=== PATIENT | female | born 1960 ===

== ENCOUNTER 2018-08-02 12:53 | Inpatient (IN) ==
[2018-08-02] MEDS ORDERED: ONDANSETRON 4 MG/2 ML VIAL IV PRN (14:26)
[2018-08-02] MEDS ORDERED: ACETAMINOPHEN 325 MG TABLET PO PRN (14:26)
[2018-08-02] MEDS ORDERED: DEXTROSE 50% 25 GM/50 ML VIAL IV PRN (14:32)
[2018-08-02] MEDS ORDERED: GLUCAGON 1 MG VIAL IM PRN (14:32)
[2018-08-02] MEDS ORDERED: HYDROmorphone 2 MG/1 ML VIAL IV PRN (14:32)
[2018-08-02] MEDS ORDERED: BISACODYL 5 MG TABLET PO PRN (14:32)
[2018-08-02] MEDS ORDERED: NICOTINE 14 MG/24 HR PATCH TRANSDERM PRN (14:56)
[2018-08-02] MEDS: LACTATED RINGERS 1,000 ML IV SCH ×2 (17:48→23:19)
[2018-08-02] MEDS: PANTOPRAZOLE 40 MG TABLET PO SCH (17:48)
[2018-08-02] MEDS: INSULIN LISPRO 100 UNIT/ML SUBCUT SCH (17:49)
[2018-08-02 18:10] LABS: Calcium 9.1 MG/DL (8.5-10.1); Potassium 3.6 MMOL/L (3.5-5.1)
[2018-08-02] MEDS: VANCOMYCIN INJ 1,000 MG in SODIUM CHLORIDE 0.9% 250 ML IV SCH (21:17)
[2018-08-02] MEDS: SIMVASTATIN 20 MG TABLET PO SCH (21:27)
[2018-08-03 04:28] LABS: Basophils # 0.1 10*3/uL (0.0-0.2); Basophils % 0.5 % (0.0-0.8); Eosinophils # 0.2 10*3/uL (0.0-0.87); Eosinophils % 1.5 % (0.00-10.9); Hematocrit 37.7 VOL% (35.7-47.0); Hemoglobin 11.9 GM/DL (12.0-16.0); Immature Granulocytes % 0.7 %; Immature Granulocytes Absolute 0.09 #; Lymphocytes # 3.1 10*3/uL (1.4-4.0); Mean Corpuscular HGB Conc 31.6 GM/DL (32-36); Mean Corpuscular Hemoglobin 28 PG (27-34); Mean Corpuscular Volume 87.9 FL (87-102); Mean Platelet Volume 10.8 FL (9.6-12.0); Monocytes # 1.5 10*3/uL (0.11-0.8); Monocytes % 11.1 % (1.7-12.7); Neutrophils # 8.6 10*3/uL (1.4-7.4); Neutrophils % 63.2 % (38.7-73.9); Platelet Count 272 T/CUMM (130-400); Red Blood Count 4.29 MC/CUMM (3.8-5.5); White Blood Count 13.7 T/CUMM (4-12)
[2018-08-03 04:45] LABS: Calcium 8.7 MG/DL (8.5-10.1); Osmolality,Calculated 286.1 MOS/KG (273-304); Potassium 3.7 MMOL/L (3.5-5.1)
[2018-08-03] MEDS: LACTATED RINGERS 1,000 ML IV SCH ×3 (05:12→22:14)
[2018-08-03] MEDS ORDERED: FAMOTIDINE 20 MG TABLET PO ONE (06:00)
[2018-08-03] MEDS: VANCOMYCIN INJ 1,000 MG in SODIUM CHLORIDE 0.9% 250 ML IV SCH ×2 (08:13→21:22)
[2018-08-03] MEDS: INSULIN LISPRO 100 UNIT/ML SUBCUT SCH ×3 (08:13→17:42)
[2018-08-03] MEDS: LISINOPRIL 2.5 MG TABLET PO SCH (08:14)
[2018-08-03] MEDS ORDERED: LIDOCAINE 1%/EPI INJ 20 ML VIAL ONE (09:14)
[2018-08-03] MEDS ORDERED: PROPOFOL 200 MG/20 ML VIAL IV ONE (10:14)
[2018-08-03] MEDS ORDERED: MIDAZOLAM 2 MG/2 ML VIAL ONE (10:14)
[2018-08-03] MEDS ORDERED: fentaNYL 100 MCG/2 ML VIAL ONE (10:14)
[2018-08-03] MEDS: PANTOPRAZOLE 40 MG TABLET PO SCH (11:28)
[2018-08-03] MEDS: INSULIN GLARGINE 100 UNIT/ML SUBCUT SCH (17:42)
[2018-08-03] MEDS: SIMVASTATIN 20 MG TABLET PO SCH (21:23)
[2018-08-04 05:21] LABS: Basophils # 0.1 10*3/uL (0.0-0.2); Basophils % 0.5 % (0.0-0.8); Eosinophils # 0.2 10*3/uL (0.0-0.87); Eosinophils % 1.3 % (0.00-10.9); Hematocrit 38.2 VOL% (35.7-47.0); Immature Granulocytes % 0.7 %; Immature Granulocytes Absolute 0.08 #; Lymphocytes # 3.5 10*3/uL (1.4-4.0); Lymphocytes % 28.5 % (21.3-54.2); Mean Corpuscular HGB Conc 31.4 GM/DL (32-36); Mean Corpuscular Hemoglobin 28 PG (27-34); Mean Corpuscular Volume 88.2 FL (87-102); Mean Platelet Volume 11.1 FL (9.6-12.0); Monocytes # 1.1 10*3/uL (0.11-0.8); Neutrophils # 7.3 10*3/uL (1.4-7.4); Platelet Count 290 T/CUMM (130-400); Red Blood Count 4.33 MC/CUMM (3.8-5.5); Red Cell Distribution Width 13.7 % (9.3-17.3); White Blood Count 12.2 T/CUMM (4-12)
[2018-08-04 05:47] LABS: Calcium 8.4 MG/DL (8.5-10.1); Osmolality,Calculated 282.5 MOS/KG (273-304); Potassium 3.9 MMOL/L (3.5-5.1)
[2018-08-04] MEDS: LACTATED RINGERS 1,000 ML IV SCH ×2 (07:15→07:49)
[2018-08-04] MEDS ORDERED: MAGNESIUM SULF RIDER 2 GM in PREMIX 1 EACH IV PRN (08:43)
[2018-08-04] MEDS ORDERED: MAGNESIUM SULF RIDER 4 GM in PREMIX 1 EACH IV PRN (08:43)
[2018-08-04] MEDS: LISINOPRIL 2.5 MG TABLET PO SCH (08:54)
[2018-08-04] MEDS: VANCOMYCIN INJ 1,000 MG in SODIUM CHLORIDE 0.9% 250 ML IV SCH ×2 (08:54→20:52)
[2018-08-04] MEDS: PANTOPRAZOLE 40 MG TABLET PO SCH (08:54)
[2018-08-04] MEDS: INSULIN LISPRO 100 UNIT/ML SUBCUT SCH ×3 (08:56→16:52)
[2018-08-04] MEDS: INSULIN GLARGINE 100 UNIT/ML SUBCUT SCH (08:56)
[2018-08-04] MEDS ORDERED: INSULIN GLARGINE 100 UNIT/ML SUBCUT SCH (10:40)
[2018-08-04] MEDS: CHLORHEXIDINE 4% SOLN 118 ML BOTTLE TOP SCH (14:25)
[2018-08-04] MEDS: SODIUM HYPOCHLORITE 0.25% IRRIG 473 ML BOTTLE TOP SCH (14:25)
[2018-08-04] MEDS: SIMVASTATIN 20 MG TABLET PO SCH (20:53)
[2018-08-05] MEDS: PANTOPRAZOLE 40 MG TABLET PO SCH (09:29)
[2018-08-05] MEDS: LISINOPRIL 2.5 MG TABLET PO SCH (09:29)
[2018-08-05] MEDS: INSULIN LISPRO 100 UNIT/ML SUBCUT SCH ×3 (09:30→16:06)
[2018-08-05] MEDS: INSULIN GLARGINE 100 UNIT/ML SUBCUT SCH (09:30)
[2018-08-05] MEDS: VANCOMYCIN INJ 1,250 MG in SODIUM CHLORIDE 0.9% 250 ML IV SCH (09:32)
[2018-08-05] MEDS: SODIUM HYPOCHLORITE 0.25% IRRIG 473 ML BOTTLE TOP SCH (09:35)
[2018-08-05] MEDS: CHLORHEXIDINE 4% SOLN 118 ML BOTTLE TOP SCH (09:35)
[2018-08-06] MEDS: SIMVASTATIN 20 MG TABLET PO SCH ×2 (01:57→20:49)
[2018-08-06] MEDS: VANCOMYCIN INJ 1,250 MG in SODIUM CHLORIDE 0.9% 250 ML IV SCH ×2 (01:57→09:17)
[2018-08-06] MEDS: PANTOPRAZOLE 40 MG TABLET PO SCH (08:34)
[2018-08-06] MEDS: LISINOPRIL 2.5 MG TABLET PO SCH (08:34)
[2018-08-06] MEDS: INSULIN GLARGINE 100 UNIT/ML SUBCUT SCH (08:35)
[2018-08-06] MEDS: INSULIN LISPRO 100 UNIT/ML SUBCUT SCH ×3 (08:35→16:20)
[2018-08-06] MEDS: CHLORHEXIDINE 4% SOLN 118 ML BOTTLE TOP SCH (11:13)
[2018-08-06] MEDS: SODIUM HYPOCHLORITE 0.25% IRRIG 473 ML BOTTLE TOP SCH (11:13)
[2018-08-06] MEDS: CLINDAMYCIN 300 MG CAPSULE PO SCH ×3 (13:39→22:19)
[2018-08-07] MEDS: CLINDAMYCIN 300 MG CAPSULE PO SCH (06:17)
[2018-08-07] MEDS ORDERED: glyBURIDE/METFORMIN 5-500 MG TABLET PO SCH (09:00)
[2018-08-07] MEDS: PANTOPRAZOLE 40 MG TABLET PO SCH (09:29)
[2018-08-07] MEDS: LISINOPRIL 2.5 MG TABLET PO SCH (09:29)
[2018-08-07] MEDS: INSULIN LISPRO 100 UNIT/ML SUBCUT SCH ×2 (09:29→11:37)
[2018-08-07] MEDS: CHLORHEXIDINE 4% SOLN 118 ML BOTTLE TOP SCH (11:13)
[2018-08-07] MEDS: SODIUM HYPOCHLORITE 0.25% IRRIG 473 ML BOTTLE TOP SCH (11:13)
[2018-08-07 11:35] VITALS: BP 102/60
== END 2018-08-07 13:45 | disposition home or self-care (01) | DRG 623 ==
LOC: N.ED 12:53 → N.EDINP 14:26 → N.3E 16:30
PROVIDERS: ADMIT Surgery; ATTEND Surgery